=== PATIENT | female | born 1955 ===

== ENCOUNTER → 2018-05-26 14:00 | Outpatient (CLI) | payer SELFPAY ==
[2018-07-07 15:49] LABS: Urine Drug Scr, Empl Non-NIDA See Separate Report
== END ==
PROVIDERS: Family Provider Family Medicine; PCP Family Medicine; Visit Provider Family Medicine
DX: I10 Essential (primary) hypertension (principal); G70.00 Myasthenia gravis without (acute) exacerbation; E78.4 Other hyperlipidemia
CPT/HCPCS: 81099

== ENCOUNTER → 2018-07-18 10:00 | Outpatient (CLI) | payer BC, SELFPAY | PROVIDERS: Family Provider Family Medicine; PCP Family Medicine | DX: Z23 Encounter for immunization (principal) | CPT/HCPCS: 90471; 90686 ==

== ENCOUNTER → 2019-07-26 13:41 | Outpatient (CLI) | payer OTHER, SELFPAY ==
--- NOTE | 2019-07-26 13:42 | DI.US.S_ITS ---
LIMITED ULTRASOUND OF LEFT BREAST: 07/26/2019 CLINICAL: Bloody nipple discharge left breast. Comparison is made to exams dated: 07/26/2019 mammogram, 07/26/2019 mammogram, 12/17/2016 mammogram, 12/17/2016 mammogram, 08/28/2014 mammogram - [facility], and 04/12/2008 mammogram - [facility]. Color flow and real-time ultrasound of the left breast nipple and retroareolar were performed. Das scale images of the real-time examination were reviewed. Targeted ultrasound of the left nipple and retroareolar region demonstrates no abnormality or mass. There is no focal duct dilitation. IMPRESSION: INCOMPLETE: NEEDS ADDITIONAL IMAGING EVALUATION No sonographic abnormality of the left nipple/retroareolar region to explain patient's reported previous single episode of bloody nipple discharge. Recommend clinical follow-up with the patient's referring provider for further evaluation and management. A breast MRI is also recommended for further evaluation. This exam was interpreted at Station ID: [id number]. Electronically Signed By: Yimi Huang M.D. ecl/:07/31/2019 08:11:35 letter sent: Need MRI Ultrasound BI-RADS: 0 Indeterminate
--- NOTE | 2019-07-26 13:42 | DI.MG.S_ITS ---
BILATERAL DIGITAL DIAGNOSTIC MAMMOGRAM 3D/2D WITH AUGMENTATION: 07/26/2019 CLINICAL: Single episode of bloody left nipple discharge approximately 3 weeks prior. Comparison is made to exams dated: 12/17/2016 mammogram, 08/28/2014 mammogram - [facility], and 04/12/2008 mammogram - [facility]. There are scattered fibroglandular elements in both breasts. There are bilateral saline implants. There are jalen-implant/pericapsular calcifications. There is no left retroareolar mass or abnormality. No significant masses, calcifications, or other findings are seen in either breast. IMPRESSION: INCOMPLETE: NEEDS ADDITIONAL IMAGING EVALUATION No mammographic abnormality to correlate with patient's reported bloody left nipple discharge. Targeted diagnostic left nipple and retroareolar ultrasound recommended for further evaluation, which will be performed immediately following this exam. This exam was interpreted at Station ID: [id number]. NOTE: For mammograms, a report in lay terms will be sent to the patient. Approximately 15% of breast malignancies will not be visualized mammographically. In the management of a palpable breast mass, a negative mammogram must not discourage biopsy of a clinically suspicious lesion. Electronically Signed By: Yimi Huang M.D. ecl/:07/26/2019 14:40:44 ACR BI-RADS Category 0: Incomplete 3340F
== END ==
PROVIDERS: PCP Hospitalist; Visit Provider Hospitalist
DX: R92.8 Other abnormal and inconclusive findings on diagnostic imaging of breast (principal); N64.52 Nipple discharge
CPT/HCPCS: 76642; 77066; G0279

== ENCOUNTER → 2019-09-04 14:39 | Outpatient (CLI) | payer OTHER, SELFPAY | PROVIDERS: PCP Hospitalist | DX: Z23 Encounter for immunization (principal) | CPT/HCPCS: 90471; 90686 ==

== ENCOUNTER → 2020-03-26 11:49 | Outpatient (CLI) | payer OTHER, SELFPAY ==
[2020-03-26 12:50] LABS: Add Manual Diff / Slide Review NO; Basophils Absolute Auto 100 /uL (0-100); Basophils Percent Auto 0.8 % (0-2); Eosinophils Absolute Auto 100 /uL (0-450); Eosinophils Percent Auto 1.4 % (2-4); Hematocrit 43.9 % (36-46); Hemoglobin 15.3 g/dL (12.0-16.0); Lymphocytes Absolute Auto 2000 /uL (1100-4500); Lymphocytes Percent Auto 29.4 % (25-40); Mean Corpuscular HGB Conc 34.8 % (30-36); Mean Corpuscular Hemoglobin 32.5 PG (26-34); Mean Corpuscular Volume 93.3 fL (80-100); Monocytes Absolute Auto 400 /uL (0-900); Monocytes Percent Auto 5.6 % (3-14); Neutrophils Absolute Auto 4300 /uL (1500-7000); Neutrophils Percent Auto 62.8 % (50-75); Platelet Count 280 X10^3/uL (150-400); Red Blood Cell Count 4.71 X10^6/uL (4.0-5.2); Red Cell Distribution Width 12.8 % (11.6-14.8); White Blood Cell Count 6.9 X10^3/uL (4.5-11.0)
[2020-03-26 13:37] LABS: Blood Urea Nitrogen 16 mg/dL (7-17); Calcium 9.6 mg/dL (8.4-10.2); Carbon Dioxide 26 mmol/L (22-32); Chloride 108 mmol/L (98-107); Cholesterol 175 mg/dL (140-199); Estimated Glomerular Filt Rate > 60.0 mL/min (>60); Glucose 108 mg/dL (80-110); HDL Cholesterol 62 mg/dL (40-60); HEMOLYSIS < 15 (0-50); LDL Cholesterol Calculated 49 mg/dL (<100); Potassium 4.5 mmol/L (3.4-5.1); Sodium 137 mmol/L (137-145); Triglycerides 322 mg/dL (35-150)
[2020-03-26 15:48] LABS: Vitamin D 25 Hydroxy (D3) 31.1 ng/mL (30.0-100.0)
[2020-03-26 16:04] LABS: TSH w/ Reflex to FT4 1.18 uIU/mL (0.47-4.68)
== END ==
PROVIDERS: PCP Family Medicine; Referring Provider Family Medicine; Visit Provider Family Medicine
DX: Z13.29 Encounter for screening for other suspected endocrine disorder (principal); E78.5 Hyperlipidemia, unspecified; F32.9 Major depressive disorder, single episode, unspecified; I10 Essential (primary) hypertension; E55.9 Vitamin D deficiency, unspecified
CPT/HCPCS: 36415; 80048; 80061; 82306; 84443; 85025

== ENCOUNTER → 2020-09-09 14:23 | Outpatient (CLI) | payer MEDICARE, SELFPAY | PROVIDERS: PCP Family Medicine; Referring Provider Internal Medicine; Visit Provider Internal Medicine | DX: Z23 Encounter for immunization (principal) | CPT/HCPCS: 90471; 90662 ==

== ENCOUNTER → 2020-10-18 09:54 | Outpatient (CLI) | payer MEDICARE, SELFPAY ==
[2020-10-18] MEDS: COVID-19 VACC(MODERNA-1)/PF 100 MCG/0.5 ML VIAL IM (10:03)
== END ==
PROVIDERS: PCP Family Medicine; Visit Provider Internal Medicine
DX: Z23 Encounter for immunization (principal)
CPT/HCPCS: 0011A; 91301

== ENCOUNTER → 2020-11-14 09:47 | Outpatient (CLI) | payer MEDICARE, SELFPAY ==
[2020-11-14] MEDS: COVID-19 VACC #2, MRNA(MOD) 100 MCG/0.5 ML VIAL IM (09:52)
== END ==
PROVIDERS: PCP Family Medicine; Visit Provider Internal Medicine
DX: Z23 Encounter for immunization (principal)
CPT/HCPCS: 0012A; 91301

== ENCOUNTER → 2021-03-17 07:55 | Outpatient (CLI) | payer MEDICARE, SELFPAY ==
[2021-03-17 08:26] LABS: Add Manual Diff / Slide Review NO; Basophils Absolute Auto 100 /uL (0-100); Basophils Percent Auto 0.7 % (0-2); Eosinophils Absolute Auto 100 /uL (0-450); Eosinophils Percent Auto 1.7 % (2-4); Hematocrit 44.5 % (36-46); Hemoglobin 15.1 g/dL (12.0-16.0); Lymphocytes Absolute Auto 2100 /uL (1100-4500); Lymphocytes Percent Auto 27.2 % (25-40); Mean Corpuscular HGB Conc 33.9 % (30-36); Mean Corpuscular Volume 91.4 fL (80-100); Monocytes Absolute Auto 500 /uL (0-900); Neutrophils Absolute Auto 4900 /uL (1500-7000); Neutrophils Percent Auto 64.4 % (50-75); Platelet Count 262 X10^3/uL (150-400); Red Blood Cell Count 4.86 X10^6/uL (4.0-5.2); Red Cell Distribution Width 13.2 % (11.6-14.8); White Blood Cell Count 7.7 X10^3/uL (4.5-11.0)
[2021-03-17 08:29] LABS: Hemoglobin A1C% w Est Avg Glu 5.5 % (4.0-6.0)
[2021-03-17 09:01] LABS: Alanine Aminotransferase 30 IU/L (<35); Albumin 4.2 g/dL (3.5-5.0); Albumin Globulin Ratio 1.5 (1.0-2.8); Alkaline Phosphatase 50 U/L (38-126); Aspartate Aminotransferase 30 IU/L (14-36); BUN Creatinine Ratio 29.5 (6-22); Bilirubin Total 0.5 mg/dL (0.2-1.3); Blood Urea Nitrogen 18 mg/dL (7-17); Calcium 9.5 mg/dL (8.4-10.2); Carbon Dioxide 28 mmol/L (22-32); Chloride 107 mmol/L (98-107); Cholesterol 197 mg/dL (140-199); Estimated Glomerular Filt Rate > 60.0 mL/min (>60); Globulin 2.8 g/dL (1.7-4.1); Glucose 121 mg/dL (80-110); HDL Cholesterol 52 mg/dL (40-60); HEMOLYSIS < 15 (0-50); Potassium 4.7 mmol/L (3.4-5.1); Sodium 137 mmol/L (137-145)
[2021-03-17 09:09] LABS: Triglycerides 587 mg/dL (35-150)
[2021-03-17 09:10] LABS: Free T3, Triiodothyronine Free 3.87 pg/mL (2.77-5.27); Free T4, Direct Thyroxine 0.77 ng/dL (0.78-2.19)
[2021-03-17 09:23] LABS: Thyroid Stimulating Hormone 1.41 uIU/mL (0.47-4.68)
== END ==
PROVIDERS: PCP Family Medicine; Referring Provider Family Medicine; Visit Provider Family Medicine
DX: E78.1 Pure hyperglyceridemia (principal); G70.00 Myasthenia gravis without (acute) exacerbation; I10 Essential (primary) hypertension; R53.83 Other fatigue
CPT/HCPCS: 36415; 80053; 80061; 83036; 84439; 84443; 84481; 85025

== ENCOUNTER → 2021-04-16 12:28 | Outpatient (CLI) | payer MEDICARE, SELFPAY ==
[2021-04-16 13:53] LABS: Add Manual Diff / Slide Review NO; Basophils Absolute Auto 0 /uL (0-100); Basophils Percent Auto 0.8 % (0-2); Eosinophils Absolute Auto 100 /uL (0-450); Eosinophils Percent Auto 2.1 % (2-4); Hematocrit 43.7 % (36-46); Hemoglobin 14.8 g/dL (12.0-16.0); Lymphocytes Absolute Auto 1400 /uL (1100-4500); Lymphocytes Percent Auto 24.7 % (25-40); Mean Corpuscular Hemoglobin 31.4 PG (26-34); Mean Corpuscular Volume 92.5 fL (80-100); Monocytes Absolute Auto 400 /uL (0-900); Neutrophils Absolute Auto 3800 /uL (1500-7000); Neutrophils Percent Auto 65.4 % (50-75); Platelet Count 238 X10^3/uL (150-400); Red Blood Cell Count 4.72 X10^6/uL (4.0-5.2); Red Cell Distribution Width 13.2 % (11.6-14.8); White Blood Cell Count 5.8 X10^3/uL (4.5-11.0)
[2021-04-16 14:17] LABS: Alanine Aminotransferase 38 IU/L (<35); Albumin 4.2 g/dL (3.5-5.0); Albumin Globulin Ratio 1.4 (1.0-2.8); Alkaline Phosphatase 42 U/L (38-126); Aspartate Aminotransferase 43 IU/L (14-36); BUN Creatinine Ratio 19.7 (6-22); Bilirubin Total 0.3 mg/dL (0.2-1.3); Blood Urea Nitrogen 13 mg/dL (7-17); Calcium 9.6 mg/dL (8.4-10.2); Carbon Dioxide 27 mmol/L (22-32); Chloride 113 mmol/L (98-107); Estimated Glomerular Filt Rate > 60.0 mL/min (>60); Glucose 116 mg/dL (80-110); HEMOLYSIS < 15 (0-50); Potassium 4.1 mmol/L (3.4-5.1); Sodium 140 mmol/L (137-145); Total Protein 7.2 g/dL (6.3-8.2)
== END ==
PROVIDERS: PCP Family Medicine; Referring Provider Psychiatry & Neurology Neurology; Visit Provider Psychiatry & Neurology Neurology
DX: G70.00 Myasthenia gravis without (acute) exacerbation (principal)
CPT/HCPCS: 36415; 80053; 85025

== ENCOUNTER → 2021-09-11 07:09 | Outpatient (CLI) | payer MEDICARE, SELFPAY ==
[2021-09-11 08:40] LABS: Free T3, Triiodothyronine Free 4.24 pg/mL (2.77-5.27); Free T4, Direct Thyroxine 1.06 ng/dL (0.78-2.19)
[2021-09-11 08:43] LABS: Alanine Aminotransferase 19 IU/L (<35); Albumin 3.8 g/dL (3.5-5.0); Albumin Globulin Ratio 1.3 (1.0-2.8); Alkaline Phosphatase 43 U/L (38-126); Aspartate Aminotransferase 25 IU/L (14-36); BUN Creatinine Ratio 24.6 (6-22); Bilirubin Total 0.7 mg/dL (0.2-1.3); Blood Urea Nitrogen 16 mg/dL (7-17); Calcium 8.9 mg/dL (8.4-10.2); Carbon Dioxide 27 mmol/L (22-32); Chloride 112 mmol/L (98-107); Cholesterol 179 mg/dL (140-199); Estimated Glomerular Filt Rate > 60.0 mL/min (>60); Globulin 2.9 g/dL (1.7-4.1); Glucose 129 mg/dL (80-110); HDL Cholesterol 51 mg/dL (40-60); HEMOLYSIS < 15 (0-50); LDL Cholesterol Calculated 70 mg/dL (<100); Potassium 3.9 mmol/L (3.4-5.1); Sodium 138 mmol/L (137-145); Total Protein 6.7 g/dL (6.3-8.2); Triglycerides 291 mg/dL (35-150)
== END ==
PROVIDERS: PCP Family Medicine; Referring Provider Family Medicine; Visit Provider Family Medicine
DX: E78.5 Hyperlipidemia, unspecified (principal); I10 Essential (primary) hypertension; F32.9 Major depressive disorder, single episode, unspecified; R53.83 Other fatigue
CPT/HCPCS: 36415; 80053; 80061; 84439; 84443; 84481

== ENCOUNTER → 2021-10-28 13:38 | Outpatient (CLI) | payer MEDICARE, SELFPAY ==
--- NOTE | 2021-10-28 13:39 | DI.MRI.S_ITS ---
BREAST MRI OF BOTH BREASTS- WITH CAD: 10/28/2021 CLINICAL: Breast implant with nipple discharge. Comparison is made to exams dated: 07/26/2019 ultrasound, 07/26/2019 mammogram, 07/26/2019 mammogram, 12/17/2016 mammogram, and 12/17/2016 mammogram - [facility]. Interpretation of this MRI was correlated with available mammograms and ultrasounds. Informed consent was obtained from the patient. 20 cc of ProHance (Gadoteridol) nonionic contrast was injected. Axial T1, T2, sagittal T1, and pre and post contrast T1 images were obtained with a dedicated breast coil. Post processing was performed including computer aided calculations of any tumor volumes and dimensions. Bilateral background breast enhancement is mild. Right breast: There is a prepectoral saline implant which appears intact without evidence of intracapsular or extracapsular rupture. There is mild linear scarring along the implant capsule without a discrete mass or suspicious enhancement. No suspicious fluid collections. Left breast: There is a prepectoral saline implant which appears intact without evidence of intracapsular or extracapsular rupture. There is mild linear scarring along the implant capsule without a discrete mass or suspicious enhancement. No suspicious fluid collections. Miscellaneous: No evidence of axillary or internal mammary lymphadenopathy by size criteria. IMPRESSION: NEGATIVE 1. No evidence of implant rupture. 2. No evidence of malignancy in the right or left breast. 3. Bilateral scarring demonstrated along the implant capsule without definite abnormal soft tissue thickening or enhancement. This exam was interpreted at Station ID: [id number]. Electronically Signed By: Sergey Washington M.D. ddp/:10/28/2021 17:46:20 ACR BI-RADS Category 1: Negative 3341F
== END ==
PROVIDERS: PCP Family Medicine; Referring Provider Family Medicine; Visit Provider Family Medicine
DX: N64.52 Nipple discharge (principal); Z98.82 Breast implant status
CPT/HCPCS: 77047; A9579

== ENCOUNTER → 2022-05-04 15:01 | Outpatient (CLI) | payer MEDICARE, SELFPAY ==
[2022-05-04 16:14] LABS: Cholesterol 185 mg/dL (140-199); HDL Cholesterol 43 mg/dL (40-60); LDL Cholesterol Calculated 97 mg/dL (<100); Triglycerides 227 mg/dL (35-150)
== END ==
PROVIDERS: PCP Family Medicine; Referring Provider Family Medicine; Visit Provider Family Medicine
DX: E78.1 Pure hyperglyceridemia (principal); K42.9 Umbilical hernia without obstruction or gangrene; G47.00 Insomnia, unspecified
CPT/HCPCS: 36415; 80061; 99213

== ENCOUNTER → 2022-05-25 11:30 | Outpatient (CLI) | payer MEDICARE, SELFPAY ==
[2022-05-25 13:34] LABS: COVID19 -Nasal RAPID Negative (Negative)
== END ==
PROVIDERS: PCP Family Medicine; Visit Provider Surgery
DX: Z20.822 Contact with and (suspected) exposure to COVID-19 (principal); Z01.812 Encounter for preprocedural laboratory examination
CPT/HCPCS: 87635; C9803

== ENCOUNTER 2022-05-26 11:12 | Day surgery (SDC) | payer MEDICARE, SELFPAY ==
[2022-05-22 09:49] VITALS: BMI 28.1
[2022-05-26 11:33] VITALS: BP 144/77; PULSE 75; RESP 18; TEMP 36.6; O2SAT 95
[2022-05-26 11:35] VITALS: BMI 28.1
[2022-05-26] MEDS: LACTATED RINGERS 1,000 ML 42 ML IV (11:40)
[2022-05-26] MEDS: PYRIDOSTIGMINE 60 MG TABLET 180 MG PO (13:33)
--- NOTE | 2022-05-26 13:38 | SUR.PREOP ---
Pt stated she was having weakness on her left side, stated that those are her myasthenia gravis symptoms, asked to take her meds, cleared with Dr. Harper. Med obtained from pharmacy and given to pt with a small sip of water.
--- NOTE | 2022-05-26 13:57 | PM.PREOP ---
Pre-operative Note COVID-19 COVID-19 status: Negative Result date/Date tested (Pos, Neg/Pending): 05/25/22 Interval Note History & Physical reviewed/Exam performed by Physician: Yes Changes to H&P: No ASA Class (for procedural sedation): III
[2022-05-26] MEDS: CEFAZOLIN 2 GM/100 ML PREMIX 100 ML IV (14:28)
--- NOTE | 2022-05-26 14:36 | SUR.OPER ---
Supine on padded OR bed, head on pillow, arms secured on padded arm boards at <90 degrees abduction, legs uncrossed, safety belt at thigh, tape over blanket over lower legs. Gel pad placed under bilateral heels.
--- NOTE | 2022-05-26 14:36 | SUR.OPER ---
Patients glasses and retainer placed in patient belongings bag in pre-op area.
[2022-05-26] MEDS: LIDOCAINE 1% W/EPI 20 ML INJ (14:45)
[2022-05-26] MEDS: ACETAMINOPHEN IV 1,000 MG/100 ML VIAL 400 MG IV (14:58)
--- NOTE | 2022-05-26 15:18 | PM.OP.1 ---
Operative Date/Time/Diagnoses Date of procedure: 05/26/22 Time of procedure: 15:18 Pre-op diagnosis: Umbilical hernia Post-op diagnosis: same Procedure & Clinicians Procedure: Open umbilical hernia repair with mesh Same procedure as scheduled: Yes Surgeon: Sam Gonzales Anesthesia Type: General Operative Notes Procedure in detail: Ancef was administered. The patient was brought to the operating room, placed on the table in the supine position and general anesthesia was induced. The abdomen was prepped and draped in the usual fashion. A time-out was performed. A 5 cm curvilinear incision was made inferior to the umbilicus. The hernia sac was dissected free from the surrounding subcutaneous adipose tissue. The sac was transected at level of fascia with cautery.. The hernia sac was dissected free from the fascial ring and allowed to drop back down into the abdomen. The fascia was then closed transversely with multiple interrupted 0 Ethibond sutures. The subcutaneous adipose tissue was cleared off of the anterior sheath circumferentially about 2 cm in each direction. A piece of polypropylene mesh was trimmed to fit over the fascial closure and secured with Tisseel. Once the Tisseel was dried the umbilical skin was tacked down to the mesh with a single 3-0 Vicryl stitch. The skin was closed with multiple interrupted 3-0 Vicryl dermal sutures followed by a running 4 Monocryl subcuticular closure. Steri-Strips were applied and an abdominal binder was applied. Post-operative Condition: stable Disposition: PACU
[2022-05-26 15:25] VITALS: BP 141/67; PULSE 99; RESP 15; TEMP 36.9; O2SAT 94
[2022-05-26 15:30] VITALS: BP 151/65; PULSE 100; RESP 14; O2SAT 91
[2022-05-26 15:35] VITALS: BP 157/76; PULSE 94; RESP 17; O2SAT 93
[2022-05-26 15:40] VITALS: BP 144/68; PULSE 92; RESP 15; O2SAT 96
[2022-05-26] MEDS: ONDANSETRON 4 MG/2 ML INJ IV (15:40)
[2022-05-26 16:00] VITALS: BP 145/63; PULSE 90; RESP 16; O2SAT 95
--- NOTE | 2022-05-26 16:21 | SUR.PHASEII ---
1615: pt A&Ox4, denies any pain, dressing C/D/I, and ready to discharge home. Discharge instructions reviewed with pt and time allowed for questions, IV DC'd intact. Pt left unit with all personal belongings via w/c to main entrance where daughter was waiting to transport pt home. Pt released to daughter in stable condition.
== END 2022-05-26 16:15 | disposition home or self-care (01) ==
PROVIDERS: PCP Family Medicine; Referring Provider Surgery; Visit Provider Surgery
PROC: (CPT 49585; principal; 2022-05-26 12:45)
DX: K42.9 Umbilical hernia without obstruction or gangrene (principal); I10 Essential (primary) hypertension; F32.A Depression, unspecified
CPT/HCPCS: 49585; 00750; J0131; J0690; J1170; J2405; J2704

== ENCOUNTER → 2023-05-24 09:25 | Outpatient (CLI) | payer MEDICARE, SELFPAY | PROVIDERS: PCP Family Medicine; Referring Provider Family Medicine; Visit Provider Family Medicine | DX: R00.2 Palpitations (principal); M85.80 Other specified disorders of bone density and structure, unspecified site | CPT/HCPCS: 36415; 80053; 80061; 82306; 85025; 93246 ==

== ENCOUNTER → 2023-05-24 09:44 | Outpatient (CLI) | payer MEDICARE, SELFPAY ==
[2023-05-24 11:11] LABS: Add Manual Diff / Slide Review NO; Basophils Absolute Auto 0 /uL (0-100); Basophils Percent Auto 0.7 % (0-2); Eosinophils Absolute Auto 100 /uL (0-450); Eosinophils Percent Auto 1.4 % (2-4); Hematocrit 44.3 % (36-46); Hemoglobin 15.5 g/dL (12.0-16.0); Lymphocytes Absolute Auto 1700 /uL (1100-4500); Lymphocytes Percent Auto 30.6 % (25-40); Mean Corpuscular HGB Conc 34.9 % (30-36); Mean Corpuscular Hemoglobin 31.6 PG (26-34); Mean Corpuscular Volume 90.5 fL (80-100); Monocytes Absolute Auto 400 /uL (0-900); Monocytes Percent Auto 6.2 % (3-14); Neutrophils Absolute Auto 3500 /uL (1500-7000); Neutrophils Percent Auto 61.1 % (50-75); Platelet Count 240 X10^3/uL (150-400); Red Blood Cell Count 4.89 X10^6/uL (4.0-5.2); White Blood Cell Count 5.7 X10^3/uL (4.5-11.0)
[2023-05-24 11:16] LABS: Alanine Aminotransferase 25 IU/L (<35); Albumin 4.3 g/dL (3.5-5.0); Albumin Globulin Ratio 1.4 (1.0-2.8); Alkaline Phosphatase 50 U/L (38-126); Aspartate Aminotransferase 30 IU/L (14-36); BUN Creatinine Ratio 22.4 (6-22); Bilirubin Total 0.9 mg/dL (0.2-1.3); Blood Urea Nitrogen 13 mg/dL (7-17); Carbon Dioxide 28 mmol/L (22-32); Chloride 107 mmol/L (98-107); Cholesterol 178 mg/dL (140-199); Estimated Glomerular Filt Rate > 60 mL/min (>60); Globulin 3.1 g/dL (1.7-4.1); Glucose 137 mg/dL (80-110); HDL Cholesterol 62 mg/dL (40-60); HEMOLYSIS < 15 (0-50); LDL Cholesterol Calculated 40 mg/dL (<100); Potassium 3.6 mmol/L (3.4-5.1); Sodium 137 mmol/L (137-145); Total Protein 7.4 g/dL (6.3-8.2); Triglycerides 382 mg/dL (35-150)
[2023-05-24 11:39] LABS: Vitamin D 25 Hydroxy (D3) 30.5 ng/mL (30.0-100.0)
== END ==
PROVIDERS: PCP Family Medicine; Referring Provider Family Medicine; Visit Provider Family Medicine
DX: M85.80 Other specified disorders of bone density and structure, unspecified site (principal)
CPT/HCPCS: 36415; 80053; 80061; 82306; 85025

== ENCOUNTER → 2023-05-25 10:16 | Outpatient (CLI) | payer MEDICARE, SELFPAY ==
--- NOTE | 2023-05-25 10:17 | DI.RAD.S_ITS ---
Bone Density Report Name: JACIEL RIDLEY Age: 67 Sex: Female Ethnicity: White Date of : 1955 Indication: postmenopausal; screening for osteoporosis; Referring Provider: ALEX DUNLAP D.O. Study: Bone densitometry was performed. Exam Date: May 25, 2023 Accession number: [id number] Bone Density: Region BMD T-score Z-score Classification AP Spine(L1-L4) 0.996 -0.5 1.5 Normal Femoral Neck (Left) 0.627 -2.0 -0.3 Osteopenia Total Hip (Left) 0.751 -1.6 -0.2 Osteopenia Femoral Neck (Right) 0.636 -1.9 -0.2 Osteopenia Total Hip (Right) 0.823 -1.0 0.4 Normal Total Hip Mean 0.787 -1.3 0.1 Osteopenia World Health Organization criteria for BMD impression classify patients as: Normal (T-score at or above -1.0), Osteopenia (T-score between -1.0 and -2.5), or Osteoporosis (T-score at or below -2.5). 10-year Fracture Risk(1): Major Osteoporotic Fracture 11% Hip Fracture 1.8% Reported Risk Factors: [place] (), Neck BMD=0.627, BMI=27.7 (1) FRAX(R) Version 3.08. Fracture probability calculated for an untreated patient. Fracture probability may be lower if the patient has received treatment. Impression: The patient has low bone mass, based on the Left Femoral Neck T-score. The patient has an estimated ten-year risk of hip fracture of 1.8% and an estimated ten-year risk of major fracture of 11%, based on the WHO FRAX algorithm. Discussion: BONE DENSITY IS LOW AT ONE OR MORE SKELETAL SITES. This patient's lowest T-score is low at one or more skeletal sites. It meets the World Health Organization's (WHO) criteria for low bone mass (T-score between -1.0 and -2.5). The patient's 10-year risk of fracture as calculated by FRAX is less than the threshold where pharmacological therapy is recommended by the National Osteoporosis Foundation (NOF). However, all treatment decisions require clinical judgment and consideration of individual patient factors, including patient preferences, comorbidities, previous drug use, risk factors not captured in the FRAX model (e.g., frailty, falls, vitamin D deficiency, increased bone turnover, interval significant decline in bone density) and possible under or overestimation of fracture risk by FRAX. The patient should follow a healthful lifestyle (good nutrition with adequate calcium and vitamin D, and appropriate weight-bearing exercise). Follow-Up: Consider repeating this study in 2 to 3 years to reassess this patient's status, or sooner if there is some new clinical indication. Reported by: QUINN RITTER MD on 05/25/2023 11:09:00 AM.
== END ==
PROVIDERS: PCP Family Medicine; Referring Provider Family Medicine; Visit Provider Family Medicine
DX: M85.852 Other specified disorders of bone density and structure, left thigh (principal); Z78.0 Asymptomatic menopausal state; Z92.23 Personal history of estrogen therapy; Z13.820 Encounter for screening for osteoporosis; Z90.710 Acquired absence of both cervix and uterus
CPT/HCPCS: 77080

== ENCOUNTER → 2023-08-09 14:51 | Outpatient (CLI) | payer MEDICARE, SELFPAY ==
[2023-08-09 18:22] LABS: Hemoglobin A1C% w Est Avg Glu 5.6 % (4.0-6.0)
== END ==
PROVIDERS: PCP Family Medicine; Referring Provider Family Medicine; Visit Provider Family Medicine
DX: R73.01 Impaired fasting glucose (principal)
CPT/HCPCS: 36415; 83036

== ENCOUNTER → 2024-04-10 07:41 | Outpatient (CLI) | payer MEDICARE, SELFPAY ==
--- NOTE | 2024-04-10 | DI.ECHO.S_ITS ---
[place] [facility] : : [address] [place] : : [id number] : : Phone: [phone] Echocardiogram Report + + :Name: JACIEL RIDLEY Study Date: 04/10/2024 Height: 68 in : :[facility] ReadingLocation: Weight: 185 lb : : Gender: Female BSA: 2.0 m2 : :: 1955 Age: 68 yrs BP: 134/84 mmHg: :Reason For Study: DYSPNEA : :Ordering Physician: JHONATAN, : :JUDD Performed By: Miguel Schuler : :Referring: JUDD ENGLE : + + Interpretation Summary Technically difficult study due to breast implants. Some images are foreshortened. 1) Normal left ventricular thickness, size, wall motion, and systolic function (EF 60-65%). 2) Normal right ventricular size and function. 3) No significant valvular abnormalities. 4) No prior Echo available for comparison. Procedure: A two-dimensional transthoracic echocardiogram with color flow and Doppler was performed. The study quality was technically adequate. There is no prior echocardiogram noted for this patient. The patient was in sinus rhythm with heart rates between 72-81 bpm during the exam. Left Ventricle: The left ventricle is normal in size. Left ventricular wall thickness is normal. Proximal septal thickening is noted. The ejection fraction is estimated to be 60-65%. Left ventricular systolic function appears normal without focal wall motion abnormalities. Diastolic parameters suggest a relaxation abnormality of the left ventricle, consistent with probable normal filling pressures. Right Ventricle: The right ventricle is normal size. The right ventricular systolic function is normal. Atria: The left atrial size is normal. The right atrium is normal in size. The interatrial septum grossly appears intact with no obvious evidence for an atrial septal defect. Mitral Valve: The mitral valve is normal. There is no mitral valve stenosis. There is no mitral regurgitation noted. Aortic Valve: The aortic valve is grossly normal. There is no aortic valve stenosis. No aortic regurgitation is present. Tricuspid Valve: The tricuspid valve is normal. There is no tricuspid stenosis. No tricuspid regurgitation. Pulmonic Valve: The pulmonic valve is not well visualized. There is no pulmonic valvular stenosis. There is no pulmonic valvular regurgitation. Great Vessels: The aortic root is normal size. The dimensions of the ascending aorta are normal. The IVC is of normal diameter and collapses greater than 50% with a sniff. This suggests a low right atrial pressure of 3 mm Hg. Pericardium/ Pleura There is no pericardial effusion. There is no pleural effusion. MMode/2D Measurements & Calculations LVIDd: 4.2 cm LVOT diam: 2.0 cm LVIDs: 2.7 cm Ao root diam: 3.3 cm FS: 34.9 % asc Aorta Diam: 3.4 cm IVSd: 1.3 cm LVPWd: 0.98 cm LV pinzon. diameter/BSA (cm/m^2): 2.1 LV sys. diameter/BSA (cm/m^2): 1.4 LA A2 area: 17.0 cm2 RA long axis: 5.4 cm LA A4 area: 13.7 cm2 RA area: 16.4 cm2 LA length (vol): 4.6 cm RA vol: 42.0 ml LA vol: 43.2 ml RA : 21.2 ml/m2 LA vol index: 21.9 ml/m2 IVC diam: 1.3 cm RVD1 (basal): 3.0 cm RVD2 (mid): 2.7 cm TAPSE: 1.9 cm Doppler Measurements & Calculations Ao V2 max: 122.9 cm/sec LVOT Max Enrique: 89.2 cm/sec Ao V2 mean: 89.9 cm/sec LV V1 max P.2 mmHg Ao max P.0 mmHg LV V1 VTI: 18.1 cm Ao mean P.5 mmHg DENNIS(I,D): 2.2 cm2 Ao V2 VTI: 25.3 cm DENNIS(V,D): 2.2 cm2 sev ratio: 0.71 DENNIS indexed to BSA (cm^2/m^2): 1.1 MV E max enrique: 51.1 cm/sec PA V2 max: 109.3 cm/sec MV A max enrique: 66.0 cm/sec PA V2 mean: 78.8 cm/sec MV E/A: 0.77 PA mean P.7 mmHg Med Peak E' Enrique: 4.1 cm/sec PA pr(Accel): 39.6 mmHg E/E' med: 12.4 Lat Peak E' Enrique: 5.1 cm/sec E/E' lat: 10.0 E/e' average: 11.2 MV dec time: 0.25 sec SV(LVOT): 55.6 ml Reading Physician:10:12 AM
--- NOTE | 2024-04-11 01:48 | DI.NM.S_ITS ---
DATE OF SERVICE: 04/10/2024 PROCEDURE: Exercise stress test. INDICATIONS: Shortness of breath. CARDIAC STRESS: The patient underwent exercise stress test under the supervision of an attending staff using standard Gerson protocol. She walked on Gerson protocol for 4 minutes and 20 seconds, achieved maximum heart rate of 120, which was 80% of target heart rate. The patient developed dyspnea, hence treadmill test was discontinued. Resting blood pressure 140/84 and peak blood pressure 160/100 mmHg. Achieved 5.8 METs of workload. MICHELLE positive 13%. Baseline rhythm was sinus. During stress, no convincing ischemic changes seen. No significant arrhythmias seen. CONCLUSION: 1. Submaximal exercise stress test (80% of the target heart rate), negative for inducible ischemia. 2. Diminished exercise tolerance with MICHELLE positive 13%. Mildly hypertensive blood pressure response. No significant arrhythmias. Oxygen saturation 93% at the beginning and 89% during exercise on room air. Correlate clinically. Consider pulmonary workup to rule out pulmonary etiology. Consider pharmacological perfusion study or dobutamine stress echo for further coronary artery disease diagnosis and risk stratification. Yanci Holley - DEBBIE/lauren/YOEL doc#: [id number]/job#: [id number] dd: 04/10/2024 16:42:00 dt: 04/10/2024 23:55:00 DICTATING /COPIES TO: Trupti Martino MD COPIES MNE: PAT;
== END ==
PROVIDERS: PCP Family Medicine; Referring Provider Internal Medicine Cardiovascular Disease; Visit Provider Internal Medicine Cardiovascular Disease
DX: R06.09 Other forms of dyspnea (principal)
CPT/HCPCS: 93017; 93306

== ENCOUNTER → 2024-05-18 14:23 | Outpatient (CLI) | payer MEDICARE, SELFPAY | LOC: RESP 14:24 | PROVIDERS: PCP Family Medicine; Referring Provider Family Medicine; Visit Provider Family Medicine | DX: R06.02 Shortness of breath (principal); Z87.891 Personal history of nicotine dependence; R94.2 Abnormal results of pulmonary function studies | CPT/HCPCS: 94060; 94726; 94729 ==

== ENCOUNTER → 2024-07-05 12:43 | Outpatient (CLI) | payer MEDICARE, SELFPAY ==
--- NOTE | 2024-07-05 12:44 | DI.CT.S_ITS ---
PROCEDURE: CT LUNG LOW DOSE SCREENING INDICATIONS: Forty pack year smoking, lung cancer screening TECHNIQUE: Noncontrast 2.0-2.5 mm thick sections acquired from the pulmonary apices to the posterior costophrenic angles. 7 mm thick axial MIP, and 5 mm coronal and sagittal reformats were then acquired. For radiation dose reduction, the following was used: automated exposure control, adjustment of mA and/or kV according to patient size. COMPARISON: None. FINDINGS: Image quality: Excellent Lungs: Mild centrilobular emphysema. 3 mm pulmonary nodule in the left upper lobe (3:161). No pleural effusion pneumothorax. No pulmonary edema or focal consolidation. Soft tissue/mediastinum: Mild calcification of the thoracic aorta. No thoracic aortic aneurysm. Heart is normal in size. No pericardial effusion. Mild LAD and RCA calcification. No mediastinal, hilar, or axillary lymphadenopathy. Bilateral breast implant. Upper abdomen: Unremarkable Bones: Mild levoscoliosis at the cervical thoracic junction. IMPRESSION: 1. No suspicious pulmonary nodule. LUNG-RADS 2; continued annual screening, if eligible. Clinically Significant Non-pulmonary Findings: None. Dictated by: Sherrie Rudolph M.D. on 07/05/2024 at 17:29 Approved by: Sherrie Rudolph M.D. on 07/05/2024 at 17:38
== END ==
PROVIDERS: PCP Family Medicine; Referring Provider Family Medicine; Visit Provider Family Medicine
DX: Z87.891 Personal history of nicotine dependence (principal); J44.9 Chronic obstructive pulmonary disease, unspecified; Z12.2 Encounter for screening for malignant neoplasm of respiratory organs; R91.1 Solitary pulmonary nodule; I25.10 Atherosclerotic heart disease of native coronary artery without angina pectoris; Z98.82 Breast implant status
CPT/HCPCS: 71271

== ENCOUNTER → 2025-08-28 10:57 | Outpatient (CLI) | payer MEDICARE, SELFPAY ==
--- NOTE | 2025-08-28 10:58 | DI.MG.S_ITS ---
MM screening mammo implant BI: 08/28/2025. BI-RADS: 2 CLINICAL: 70-year old female for bilateral screening mammogram. Tyrer-Cuzick lifetime risk of 2.9%. No personal or first-degree family history of breast cancer. The patient has bilateral implants. PRIOR EXAMS 10/28/2021, 07/26/2019, 12/17/2016. MAMMOGRAPHY TECHNIQUE: 2D and 3D (tomosynthesis) digital mammographic views obtained, with additional images as needed for full coverage. Current study was also evaluated with a Computer Aided Detection (CAD) system. DENSITY B. There are scattered areas of fibroglandular density. IMPLANTS Breast implants present. MAMMOGRAPHY FINDINGS Bilateral: There are no suspicious masses, calcifications, or other findings in the breast. IMPRESSION: * No evidence of malignancy with benign findings. RECOMMENDATIONS Bilateral * Annual screening mammography. OVERALL ASSESSMENT CATEGORY BI-RADS-2: Benign. The [employer] recommends annual screening mammography beginning at age 40 for women with average risk of breast cancer. ELECTRONICALLY SIGNED: Jordan Brownlee M.D. on 08/29/2025 at 07:24:25 AM PT Interpreting Station ID: [id number]
== END ==
LOC: MAMMO 10:58
PROVIDERS: PCP Family Medicine; Referring Provider Family Medicine; Visit Provider Family Medicine
DX: Z12.31 Encounter for screening mammogram for malignant neoplasm of breast (principal); Z98.82 Breast implant status
CPT/HCPCS: 77063; 77067

== ENCOUNTER 2025-10-08 13:58 | Emergency (ER) | payer MEDICARE, SELFPAY ==
[2025-10-08] VITALS (22 sets, daily range): BP systolic 116–226; BP diastolic 58–100; PULSE 70–91; RESP 16–32; TEMP 36.7; O2SAT 81–96; BMI 24.9
--- NOTE | 2025-10-08 14:11 | DI.RAD.S_ITS ---
PROCEDURE: XR CHEST 1V INDICATIONS: Shortness of breath TECHNIQUE: One view of the chest was acquired. COMPARISON: None. FINDINGS: Surgical changes and devices: None. Lungs and pleura: Lungs are clear. No pleural effusions or pneumothorax. Mediastinum: Mediastinal contours appear normal. Heart size is normal. Bones and chest wall: No suspicious bony lesions. Overlying soft tissues appear unremarkable. IMPRESSION: No acute cardiopulmonary abnormality is seen. Approved by: Ratna Robles M.D.,Ph.D. on 10/08/2025 at 14:36
--- NOTE | 2025-10-08 14:11 | EKG_ITS ---
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
[2025-10-08] MEDS: ALBUTEROL/IPRATROPIUM 3 ML AMPUL 9 ML INH ×2 (14:22→18:09)
--- NOTE | 2025-10-08 14:25 | ED_ITS ---
HPI - SOB/Dyspnea <Alma Swenson, DO - Last Filed: 10/09/25 09:14> General Chief Complaint: Shortness of Breath/Dyspnea Stated Complaint: sob x 5 days high bp 212/117 /nausea/chest px Time Seen by Provider: 10/08/25 14:09 Source: patient Mode of arrival: Family Vehicle Limitations: no limitations History of Present Illness HPI Narrative: Patient is a 70-year-old female history of COPD presenting today with increasing shortness of breath. She reports that over the last 5 days she has had more short of breath and productive sputum. Denies fever or chills. She is noted to be quite hypertensive and hypoxic. She is not typically on home oxygen. He reports that on she started getting more short of breath no fever or chills she thought it was just bronchitis which is sounds like she does get. However she noticed that her blood pressure was quite high. She is found to be 81% at triage Related Data Home Medications ?Medication ?Instructions ?Recorded ?Confirmed pyridostigmine bromide 180 mg 180 mg PO QID ##0 04/30/23 tablet,extended release (Mestinon Timespan) wesa root extract 500 mg 1,500 mg PO BID PRN As directed 05/22/22 04/30/23 capsule calcium 600 mg (as 1 tab PO DAILY 05/22/2204/11 carbonate)-vitamin D3 5 mcg (200 unit) tablet multivitamin 1 tab PO DAILY 05/22/2204/11 vit C 250 mg-vit E 90 mg-zinc 40 1 tab PO BID 05/22/22 04/30/23 mg-copper 1 [id number] capsule (PreserVision AREDS-2) Previous Rx's ?Medication ?Instructions ?Recorded cholestyramine-aspartame 4 gram 1 g PO TID #1 pkg 01/10 07/01 oral powder (Cholestyramine Light) oxycodone-acetaminophen 5 mg-325 1 tab PO Q6H PRN pain #20 tabs 05/27/22 mg tablet (Percocet) chlorthalidone 25 mg tablet 25 mg PO DAILY #90 tabs albuterol sulfate 90 mcg/actuation 2 puff PO Q6H PRN f or wheezing 09/27/24 aerosol inhaler #8.5 grams escitalopram oxalate 10 mg tablet 10 mg PO DAILY #90 t abs 07/04/25 losartan 100 mg tablet 100 mg PO DAILY #90 tabs tiotropium bromide 18 mcg capsule 1 cap inhalation BORIS LY #90 caps 09/04/25 with inhalation device (Spiriva with HandiHaler) prednisone 20 mg tablet 40 mg (2 x 20 mg) PO DAILY # 10 tabs 10/08/25 Allergies Allergy/AdvReac Type Severity Reaction Status Date / Time lisinopril Allergy Unknown Cough Verified 10/08/25 14:15 azathioprine (From Imuran) Allergy Vomiting Verified 10/08/25 14:15 hydrocodone AdvReac Intermediate Agitated Verified 10/08/25 14:15 Patient History <Alma Swenson DO - Last Filed: 10/09/25 09:14> Medical History (Updated 10/08/25 @ 21:01 by Cheryl Monreal MD) Stopped smoking with greater than 40 pack year history COPD (chronic obstructive pulmonary disease) Elevated fasting glucose Nonsustained paroxysmal supraventricular tachycardia Double vision Osteopenia Former smoker Arthritis Anxiety Umbilical hernia without mention of obstruction or gangrene Fatigue Bleeding from breast Hyperlipemia Myasthenia gravis Depression Hypertension Hyperlipidemia (06/07/17) Myasthenia gravis (09/02/15) Essential hypertension (09/02/15) Depression (09/02/15) Surgical History Status post hysterectomy Family History Brother COPD (chronic obstructive pulmonary disease) Father Congestive heart failure Mother Diabetes mellitus Hypothyroid Social History household members: none alcohol intake: current substance use type: does not use Exam <Alma Swenson DO - Last Filed: 10/09/25 09:14> Initial Vital Signs Initial Vital Signs: Vital Signs Temperature 98.1 F 10/08/25 14:15 Pulse Rate 80 10/08/25 14:15 Respiratory Rate 24 10/08/25 14:15 Blood Pressure 226/100 H 10/08/25 14:15 Pulse Oximetry 81 L 10/08/25 14:15 Oxygen Delivery Method Room Air 10/08/25 14:15 GENERAL: Alert 70-year-old female appears in moderate respiratory and in no acute distress. HEENT: Head atraumatic,EOMI, pupils reactive, face symmetric, moist mucous membranes CARDIOVASCULAR: Regular rate and rhythm without murmurs, rubs or gallops. RESPIRATORY: Wheezing decreased breath sounds bilaterally tachypnea ABDOMEN: Soft, nontender. Normoactive bowel sounds all 4 quadrants. No guarding or rebound. EXTREMITIES: Normal range of motion, no clubbing or edema. Neurovascularly intact NEUROLOGICAL: Alert and oriented x4.Normal gait and speech. Cranial nerves II through XII grossly intact. SKIN: Warm, dry, no laceration, no petechiae, no rashes or lesions. <Cheryl Monreal MD - Last Filed: 10/09/25 01:20> Initial Vital Signs Initial Vital Signs: Vital Signs Temperature 98.1 F 10/08/25 14:15 Pulse Rate 80 10/08/25 14:15 Respiratory Rate 24 10/08/25 14:15 Blood Pressure 226/100 H 10/08/25 14:15 Pulse Oximetry 81 L 10/08/25 14:15 Oxygen Delivery Method Room Air 10/08/25 14:15 Course <Alma Swenson DO - Last Filed: 10/09/25 09:14> Orders Ordered: Discontinued Medications Albuterol/Ipratropium (Albuterol/Ipratropium 3 Ml Ampul) 9 ml INH NOW ONE Stop: 10/08/25 14:21 Last Admin: 10/08/25 14:22 Dose: 9 ml Documented By: EUGENIE Albuterol/Ipratropium (Albuterol/Ipratropium 3 Ml Ampul) 9 ml INH NOW ONE Stop: 10/08/25 17:52 Last Admin: 10/08/25 18:09 Dose: 9 ml Documented By: EUGENIE Methylprednisolone (Methylprednisolone Succ 125 Mg/2 Ml Vial) 125 mg IV NOW ONE Stop: 10/08/25 14:30 Last Admin: 10/08/25 14:39 Dose: 125 mg Documented By: [facility] Vital Signs Vital signs: Vital Signs - 8 hr 10/08/25 17:30 10/08/25 17:30 10/08/25 18:00 Pulse Rate 78 Respiratory Rate Blood Pressure 153/81 H 149/72 H Pulse Oximetry 94 Oxygen Delivery Method Oxygen Flow Rate 10/08/25 18:00 10/08/25 18:11 10/08/25 18:30 Pulse Rate 79 80 84 Respiratory Rate 16 Blood Pressure Pulse Oximetry 93 93 92 Oxygen Delivery Method Nasal Cannula Oxygen Flow Rate 2 10/08/25 18:30 10/08/25 19:00 10/08/25 19:00 Pulse Rate 88 Respiratory Rate 24 Blood Pressure 150/72 H 140/69 Pulse Oximetry 92 Oxygen Delivery Method Nasal Cannula Oxygen Flow Rate 10/08/25 19:30 10/08/25 19:30 10/08/25 20:00 Pulse Rate 86 Respiratory Rate 20 Blood Pressure 123/64 117/82 Pulse Oximetry 92 Oxygen Delivery Method Oxygen Flow Rate 10/08/25 20:00 10/08/25 20:30 10/08/25 20:30 Pulse Rate 91 H 86 Respiratory Rate 17 19 Blood Pressure 116/58 L Pulse Oximetry 93 91 Oxygen Delivery Method Oxygen Flow Rate 10/08/25 21:00 10/08/25 21:00 Pulse Rate 80 Respiratory Rate 21 Blood Pressure 123/63 Pulse Oximetry 91 Oxygen Delivery Method Room Air Oxygen Flow Rate <Cheryl Monreal MD - Last Filed: 10/09/25 01:20> Orders Ordered: Discontinued Medications Albuterol/Ipratropium (Albuterol/Ipratropium 3 Ml Ampul) 9 ml INH NOW ONE Stop: 10/08/25 14:21 Last Admin: 10/08/25 14:22 Dose: 9 ml Documented By: EUGENIE Albuterol/Ipratropium (Albuterol/Ipratropium 3 Ml Ampul) 9 ml INH NOW ONE Stop: 10/08/25 17:52 Last Admin: 10/08/25 18:09 Dose: 9 ml Documented By: EUGENIE Methylprednisolone (Methylprednisolone Succ 125 Mg/2 Ml Vial) 125 mg IV NOW ONE Stop: 10/08/25 14:30 Last Admin: 10/08/25 14:39 Dose: 125 mg Documented By: Remy Vital Signs Vital signs: Vital Signs - 8 hr 10/08/25 17:30 10/08/25 17:30 10/08/25 18:00 Pulse Rate 78 Respiratory Rate Blood Pressure 153/81 H 149/72 H Pulse Oximetry 94 Oxygen Delivery Method Oxygen Flow Rate 10/08/25 18:00 10/08/25 18:11 10/08/25 18:30 Pulse Rate 79 80 84 Respiratory Rate 16 Blood Pressure Pulse Oximetry 93 93 92 Oxygen Delivery Method Nasal Cannula Oxygen Flow Rate 2 10/08/25 18:30 10/08/25 19:00 10/08/25 19:00 Pulse Rate 88 Respiratory Rate 24 Blood Pressure 150/72 H 140/69 Pulse Oximetry 92 Oxygen Delivery Method Nasal Cannula Oxygen Flow Rate 10/08/25 19:30 10/08/25 19:30 10/08/25 20:00 Pulse Rate 86 Respiratory Rate 20 Blood Pressure 123/64 117/82 Pulse Oximetry 92 Oxygen Delivery Method Oxygen Flow Rate 10/08/25 20:00 10/08/25 20:30 10/08/25 20:30 Pulse Rate 91 H 86 Respiratory Rate 17 19 Blood Pressure 116/58 L Pulse Oximetry 93 91 Oxygen Delivery Method Oxygen Flow Rate 10/08/25 21:00 10/08/25 21:00 Pulse Rate 80 Respiratory Rate 21 Blood Pressure 123/63 Pulse Oximetry 91 Oxygen Delivery Method Room Air Oxygen Flow Rate MDM - SOB/Dyspnea <Alma Swenson, DO - Last Filed: 10/09/25 09:14> Lab Data 10/08/25 14:15 10/08/25 14:15 Labs: Lab Results 10/08/25 10/08/25 10/08/25 Range/Units 14:15 15:01 16:21 WBC 10.2 (4.5-11.0) X10^3/uL RBC 5.32 H (4.0-5.2) X10^6/uL Hgb 16.6 H (12.0-16.0) g/dL Hct 48.1 H (36-46) % MCV 90.5 (80-100) fL MCH 31.3 (26-34) PG MCHC 34.6 (30-36) % RDW 12.5 (11.6-14.8) % Plt Count 321 (150-400) X10^3/uL Neut % (Auto) 73.7 (50-75) % Lymph % (Auto) 14.6 L (25-40) % [place] % (Auto) 6.9 (3-14) % Eos % (Auto) 4.3 H (2-4) % Baso % (Auto) 0.5 (0-2) % Neut # (Auto) 7500 H (6337-0255) /uL Lymph # (Auto) 1500 (0599-2439) /uL [place] # (Auto) 700 (0-900) /uL Eos # (Auto) 400 (0-450) /uL Baso # (Auto) 100 (0-100) /uL PT 12.3 (9.4-12.5) SECONDS INR 1.1 (0.9-1.3) Sodium 141 (137-145) mmol/L Potassium 4.3 (3.4-5.1) mmol/L Chloride 106 (98-107) mmol/L Carbon Dioxide 33 H (22-32) mmol/L BUN 11 (7-17) mg/dL Creatinine 0.58 (0.52-1.04) mg/dL Estimated GFR > 60 (>60) mL/min BUN/Creatinine Ratio 19.0 (6-22) Glucose 114 H (70-99) mg/dL Lactate 1.3 (0.7-2.1) mmol/L Calcium 9.8 (8.4-10.2) mg/dL Total Bilirubin 0.8 (0.2-1.3) mg/dL AST 41 H (14-36) IU/L ALT 41 H (<35) IU/L Alkaline Phosphatase 53 (38-126) U/L Troponin I 0.087 H 0.095 H (0.01-0.034) ng/mL NT-Pro-B Natriuret Pep 1820 H (<125) pg/mL Total Protein 8.4 H (6.3-8.2) g/dL Albumin 5.1 H (3.5-5.0) g/dL Globulin 3.3 (1.7-4.1) g/dL Albumin/Globulin Ratio 1.5 (1.0-2.8) SARS-CoV-2 (PCR) Negative (Negative) Influenza A (RT-PCR) Flu a negative (NEGATIVE) Influenza B (RT-PCR) Flu b negative (NEGATIVE) RSV (PCR) Negative (Negative) 10/08/25 Range/Units 20:15 WBC (4.5-11.0) X10^3/uL RBC (4.0-5.2) X10^6/uL Hgb (12.0-16.0) g/dL Hct (36-46) % MCV (80-100) fL MCH (26-34) PG MCHC (30-36) % RDW (11.6-14.8) % Plt Count (150-400) X10^3/uL Neut % (Auto) (50-75) % Lymph % (Auto) (25-40) % [place] % (Auto) (3-14) % Eos % (Auto) (2-4) % Baso % (Auto) (0-2) % Neut # (Auto) (2162-0586) /uL Lymph # (Auto) (7968-7687) /uL [place] # (Auto) (0-900) /uL Eos # (Auto) (0-450) /uL Baso # (Auto) (0-100) /uL PT (9.4-12.5) SECONDS INR (0.9-1.3) Sodium (137-145) mmol/L Potassium (3.4-5.1) mmol/L Chloride (98-107) mmol/L Carbon Dioxide (22-32) mmol/L BUN (7-17) mg/dL Creatinine (0.52-1.04) mg/dL Estimated GFR (>60) mL/min BUN/Creatinine Ratio (6-22) Glucose (70-99) mg/dL Lactate (0.7-2.1) mmol/L Calcium (8.4-10.2) mg/dL Total Bilirubin (0.2-1.3) mg/dL AST (14-36) IU/L ALT (<35) IU/L Alkaline Phosphatase (38-126) U/L Troponin I 0.070 H (0.01-0.034) ng/mL NT-Pro-B Natriuret Pep (<125) pg/mL Total Protein (6.3-8.2) g/dL Albumin (3.5-5.0) g/dL Globulin (1.7-4.1) g/dL Albumin/Globulin Ratio (1.0-2.8) SARS-CoV-2 (PCR) (Negative) Influenza A (RT-PCR) (NEGATIVE) Influenza B (RT-PCR) (NEGATIVE) RSV (PCR) (Negative) Imaging Data Chest x-ray: Radiologist's Impression: PROCEDURE: XR CHEST 1V INDICATIONS: Shortness of breath TECHNIQUE: One view of the chest was acquired. COMPARISON: None. FINDINGS: Surgical changes and devices: None. Lungs and pleura: Lungs are clear. No pleural effusions or pneumothorax. Mediastinum: Mediastinal contours appear normal. Heart size is normal. Bones and chest wall: No suspicious bony lesions. Overlying soft tissues appear unremarkable. IMPRESSION: No acute cardiopulmonary abnormality is seen. Approved by: Ratna Robles M.D.,Ph.D. on 10/08/2025 at 14:36 ECG Data Interpretation: Lots of artifact but appears to be a sinus rhythm MDM Narrative Medical decision making narrative: MDM CC: Shortness of breath Complicating co-morbidities: COPD Data collected from: Patient Medical records reviewed: Minimal records, last record is from 2023 from PCP which confirms diagnosis of COPD hyperlipidemia hypertension Differential considered: COPD exacerbation, CHF, normal ammonia, ACS Exam documented above, pertinent findings include: Acutely dyspneic with decreasing breath sounds and wheezing bilaterally Lab Test results independently reviewed as above. Pertinent findings: CBC no leukocytosis hemoglobin 16.6 hematocrit 48.1 Electrolytes within normal limits creatinine 0.5 glucose 114 Lactic acid is 1.3 Slight elevation of AST and ALT both are 41 Troponin slight elevation 0.087--> BNP is 1820 Viral panel negative Independently reviewed EKG as above Imaging studies independently reviewed: Chest x-ray no acute cardiopulmonary process Consultations: [ ] Treatments: Solu-Medrol, bronchodilators Re-evaluations: Breathing much improved after albuterol and Solu-Medrol Discussion: Patient is 70-year-old female history of COPD hypertension hyperlipidemia today with increasing shortness of breath. Sounds like it has been going on for a couple of days in his hypoxic at triage. She did receive a DuoNeb treatment along with Solu-Medrol breathing has improved but still requiring oxygen. Troponin is also noted to be elevated 0.087 which may be from demand ischemia in hypoxia. Awaiting repeat troponin at this time. Signed out to Dr. Lucas For further disposition 1618 Transfer of care from Dr. French. Patient has elevated troponin likely demand ischemia from COPD exacerbation. Awaiting repeat troponin and EKG. 1621 EKG with normal sinus rhythm, HR 75, FL 164, QRS 78, QTC 464 (prolonged), left axis deviation, low-voltage EKG, no ectopy, poor R-wave progression, no evidence of ischemia. This was compared to EKG obtained early at 2:25 p.m. when patient was in acute COPD exacerbation. [address] Reddy, recommend repeat troponin 4 hours. Patient updated on 2101 Repeat troponin downtrending. Mild troponinemia likely secondary to demand ischemia. Patient discharged to home with return precautions. Cheryl Monreal MD Emergency Medicine 10/08/2025 21:10 <Cheryl Monreal MD - Last Filed: 10/09/25 01:20> Lab Data Labs: Lab Results 10/08/25 10/08/25 10/08/25 Range/Units 14:15 15:01 16:21 WBC 10.2 (4.5-11.0) X10^3/uL RBC 5.32 H (4.0-5.2) X10^6/uL Hgb 16.6 H (12.0-16.0) g/dL Hct 48.1 H (36-46) % MCV 90.5 (80-100) fL MCH 31.3 (26-34) PG MCHC 34.6 (30-36) % RDW 12.5 (11.6-14.8) % Plt Count 321 (150-400) X10^3/uL Neut % (Auto) 73.7 (50-75) % Lymph % (Auto) 14.6 L (25-40) % [place] % (Auto) 6.9 (3-14) % Eos % (Auto) 4.3 H (2-4) % Baso % (Auto) 0.5 (0-2) % Neut # (Auto) 7500 H (7694-7185) /uL Lymph # (Auto) 1500 (9871-0155) /uL [place] # (Auto) 700 (0-900) /uL Eos # (Auto) 400 (0-450) /uL Baso # (Auto) 100 (0-100) /uL PT 12.3 (9.4-12.5) SECONDS INR 1.1 (0.9-1.3) Sodium 141 (137-145) mmol/L Potassium 4.3 (3.4-5.1) mmol/L Chloride 106 (98-107) mmol/L Carbon Dioxide 33 H (22-32) mmol/L BUN 11 (7-17) mg/dL Creatinine 0.58 (0.52-1.04) mg/dL Estimated GFR > 60 (>60) mL/min BUN/Creatinine Ratio 19.0 (6-22) Glucose 114 H (70-99) mg/dL Lactate 1.3 (0.7-2.1) mmol/L Calcium 9.8 (8.4-10.2) mg/dL Total Bilirubin 0.8 (0.2-1.3) mg/dL AST 41 H (14-36) IU/L ALT 41 H (<35) IU/L Alkaline Phosphatase 53 (38-126) U/L Troponin I 0.087 H 0.095 H (0.01-0.034) ng/mL NT-Pro-B Natriuret Pep 1820 H (<125) pg/mL Total Protein 8.4 H (6.3-8.2) g/dL Albumin 5.1 H (3.5-5.0) g/dL Globulin 3.3 (1.7-4.1) g/dL Albumin/Globulin Ratio 1.5 (1.0-2.8) SARS-CoV-2 (PCR) Negative (Negative) Influenza A (RT-PCR) Flu a negative (NEGATIVE) Influenza B (RT-PCR) Flu b negative (NEGATIVE) RSV (PCR) Negative (Negative) 10/08/25 Range/Units 20:15 WBC (4.5-11.0) X10^3/uL RBC (4.0-5.2) X10^6/uL Hgb (12.0-16.0) g/dL Hct (36-46) % MCV (80-100) fL MCH (26-34) PG MCHC (30-36) % RDW (11.6-14.8) % Plt Count (150-400) X10^3/uL Neut % (Auto) (50-75) % Lymph % (Auto) (25-40) % [place] % (Auto) (3-14) % Eos % (Auto) (2-4) % Baso % (Auto) (0-2) % Neut # (Auto) (3951-5125) /uL Lymph # (Auto) (7697-9103) /uL [place] # (Auto) (0-900) /uL Eos # (Auto) (0-450) /uL Baso # (Auto) (0-100) /uL PT (9.4-12.5) SECONDS INR (0.9-1.3) Sodium (137-145) mmol/L Potassium (3.4-5.1) mmol/L Chloride (98-107) mmol/L Carbon Dioxide (22-32) mmol/L BUN (7-17) mg/dL Creatinine (0.52-1.04) mg/dL Estimated GFR (>60) mL/min BUN/Creatinine Ratio (6-22) Glucose (70-99) mg/dL Lactate (0.7-2.1) mmol/L Calcium (8.4-10.2) mg/dL Total Bilirubin (0.2-1.3) mg/dL AST (14-36) IU/L ALT (<35) IU/L Alkaline Phosphatase (38-126) U/L Troponin I 0.070 H (0.01-0.034) ng/mL NT-Pro-B Natriuret Pep (<125) pg/mL Total Protein (6.3-8.2) g/dL Albumin (3.5-5.0) g/dL Globulin (1.7-4.1) g/dL Albumin/Globulin Ratio (1.0-2.8) SARS-CoV-2 (PCR) (Negative) Influenza A (RT-PCR) (NEGATIVE) Influenza B (RT-PCR) (NEGATIVE) RSV (PCR) (Negative) MDM Narrative Medical decision making narrative: MDM CC: Shortness of breath Complicating co-morbidities: COPD Data collected from: Patient Medical records reviewed: Minimal records, last record is from 2023 from PCP which confirms diagnosis of COPD hyperlipidemia hypertension Differential considered: COPD exacerbation, CHF, normal ammonia, ACS Exam documented above, pertinent findings include: Acutely dyspneic with decreasing breath sounds and wheezing bilaterally Lab Test results independently reviewed as above. Pertinent findings: CBC no leukocytosis hemoglobin 16.6 hematocrit 48.1 Electrolytes within normal limits creatinine 0.5 glucose 114 Lactic acid is 1.3 Slight elevation of AST and ALT both are 41 Troponin slight elevation 0.087--> BNP is 1820 Viral panel negative Independently reviewed EKG as above Imaging studies independently reviewed: Chest x-ray no acute cardiopulmonary process Consultations: [ ] Treatments: [ ] Re-evaluations: Breathing much improved after albuterol and Solu-Medrol Discussion: Patient is 70-year-old female history of COPD hypertension hyperlipidemia today with increasing shortness of breath. Sounds like it has been going on for a couple of days in his hypoxic at triage. She did receive a DuoNeb treatment along with Solu-Medrol breathing has improved but still requiring oxygen. Troponin is also noted to be elevated 0.087 which may be from demand ischemia in hypoxia. Awaiting repeat troponin at this time. 1618 Transfer of care from Dr. French. Patient has elevated troponin likely demand ischemia from COPD exacerbation. Awaiting repeat troponin and EKG. 162 EKG with normal sinus rhythm, HR 75, FL 164, QRS 78, QTC 464 (prolonged), left axis deviation, low-voltage EKG, no ectopy, poor R-wave progression, no evidence of ischemia. This was compared to EKG obtained early at 2:25 p.m. when patient was in acute COPD exacerbation. [address] Reddy, recommend repeat troponin 4 hours. Patient updated on plan. 2101 Repeat troponin downtrending. Mild troponinemia likely secondary to demand ischemia. Patient discharged to home with return precautions. Cheryl Monreal MD Emergency Medicine 10/08/2025 21:10 Discharge Plan Departure Patient Disposition: Home Clinical Impression: Chronic obstructive pulmonary disease with (acute) exacerbation Instructions: Chronic Obstructive Pulmonary Disease Activity Restrictions/Additional Instructions: You were seen in the emergency department for acute COPD exacerbation. In the ER: -- You received multiple doses of breathing treatments that improved her symptoms. -- You also received steroids -- Your cardiac enzymes were trending upward and we needed to continue monitoring to ensure that you were not having a heart attack. -- Cardiac enzymes were trending upwards then down words and was not consistent with a heart attack Plan: -- Continue her COPD home meds as previously prescribed -- Continue additional 5 day course of steroids -- Return to the ER if you develop any new or worsening symptoms Prescriptions: New prednisone 20 mg tablet 40 mg PO DAILY Qty: 10 0RF No Action pyridostigmine bromide [Mestinon Timespan] 180 MG tablet extended release 180 mg PO QID Qty: 0 oxycodone-acetaminophen [Percocet] 5-325 mg tablet 1 tab PO Q6H PRN (Reason: pain) Qty: 20 0RF chlorthalidone 25 mg tablet 25 mg PO DAILY Qty: 90 1RF Rx Instructions: If symptomatic with low BP please take every other day. albuterol sulfate 90 mcg/actuation HFA aerosol inhaler 2 puff PO Q6H PRN (Reason: for wheezing) Qty: 8.5 0RF losartan 100 mg tablet 100 mg PO DAILY Qty: 90 1RF escitalopram oxalate 10 mg tablet 10 mg PO DAILY Qty: 90 1RF tiotropium bromide [Spiriva with HandiHaler] 18 mcg capsule, w/inhalation device 1 cap inhalation DAILY Qty: 90 1RF Cholestyramine Light 4 gram powder 1 g PO TID Qty: 1 5RF multivitamin Tablet 1 tab PO DAILY calcium carbonate-vitamin D3 600 mg-5 mcg (200 unit) Tablet 1 tab PO DAILY PreserVision AREDS-2 250-90-40-1 mg Capsule 1 tab PO BID ashwagandha root extract 500 mg Capsule 1,500 mg PO BID PRN (Reason: As directed) Referrals: Zuhair Howell DO [Primary Care Provider, Family Practice] Stand Alone Forms: Patient Portal/API
[2025-10-08 14:37] LABS: Add Manual Diff / Slide Review NO; Hematocrit 48.1 % (36-46); Hemoglobin 16.6 g/dL (12.0-16.0); Lymphocytes Absolute Auto 1500 /uL (1100-4500); Mean Corpuscular HGB Conc 34.6 % (30-36); Mean Corpuscular Hemoglobin 31.3 PG (26-34); Mean Corpuscular Volume 90.5 fL (80-100); Platelet Count 321 X10^3/uL (150-400)
[2025-10-08] MEDS: methylPREDNISolone succ 125 MG/2 ML VIAL IV (14:39)
[2025-10-08 14:42] LABS: INR 1.1 (0.9-1.3); Prothrombin Time 12.3 SECONDS (9.4-12.5)
[2025-10-08 14:46] LABS: Lactate (Lactic Acid) 1.3 mmol/L (0.7-2.1)
[2025-10-08 14:48] LABS: Alanine Aminotransferase 41 IU/L (<35); Albumin 5.1 g/dL (3.5-5.0); Albumin Globulin Ratio 1.5 (1.0-2.8); Alkaline Phosphatase 53 U/L (38-126); Blood Urea Nitrogen 11 mg/dL (7-17); Calcium 9.8 mg/dL (8.4-10.2); Carbon Dioxide 33 mmol/L (22-32); Chloride 106 mmol/L (98-107); Estimated Glomerular Filt Rate > 60 mL/min (>60); Globulin 3.3 g/dL (1.7-4.1); Glucose 114 mg/dL (70-99); HEMOLYSIS 28 (0-50); Potassium 4.3 mmol/L (3.4-5.1); Sodium 141 mmol/L (137-145); Total Protein 8.4 g/dL (6.3-8.2)
[2025-10-08 14:59] LABS: NT-proBNP (BNP-Adult 18+) 1820 pg/mL (<125); Troponin I 0.087 ng/mL (0.01-0.034)
[2025-10-08 15:47] LABS: Influenza A - CEPHEID Flu A NEGATIVE (NEGATIVE); Influenza B - CEPHEID Flu B NEGATIVE (NEGATIVE)
[2025-10-08 15:52] LABS: COVID-19 CEPHEID 4-PLEX PCR Negative (Negative)
--- NOTE | 2025-10-08 16:21 | EKG_ITS ---
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
[2025-10-08 16:53] LABS: Troponin I 0.095 ng/mL (0.01-0.034)
[2025-10-08 20:55] LABS: Troponin I 0.070 ng/mL (0.01-0.034)
== END 2025-10-08 21:16 | disposition home or self-care (01) ==
PROVIDERS: Emergency Medicine; Emergency Provider Student in an Organized Health Care Education/Training Program; PCP Family Medicine
DX: J44.1 Chronic obstructive pulmonary disease with (acute) exacerbation (principal); R07.89 Other chest pain; R11.0 Nausea; I10 Essential (primary) hypertension
CPT/HCPCS: 36415; 71045; 80053; 83605; 83880; 84484; 85025; 85610; 87070; 87205; 87637; 93005; 94640; 96374; 99285; J2919